=== PATIENT | female | born 1960 | race Caucasian/White ===

== ENCOUNTER → 2017-03-04 | Outpatient (REF) | payer OTHER | LOC: M LAB REF 16:49 | PROVIDERS: ATTEND Nurse Practitioner Women's Health | DX: N39.0 Urinary tract infection, site not specified (principal) ==

== ENCOUNTER → 2019-02-05 | Outpatient (REF) | payer OTHER | LOC: M LAB REF 12:08 | PROVIDERS: ATTEND Internal Medicine | DX: I26.09 Other pulmonary embolism with acute cor pulmonale (principal) ==

== ENCOUNTER → 2019-02-05 | Outpatient (CLI) | payer OTHER ==
[~2019-02-05] MED LIST: ISOVUE-370 76% 100ML VIAL (Q9967) As Ordered ONE
--- NOTE | 2019-02-05 14:11 | REP ---
CT ANGIOGRAM CHEST: TECHNIQUE: Axial contrast enhanced images from the thoracic inlet to the upper abdomen using 100 mL Isovue 370 intravenous contrast material with multiplanar reformations. There is no CT evidence of pulmonary embolism. There is no thoracic aortic aneurysm or dissection. There is mild cardiomegaly. There is no evidence of mediastinal, hilar, or chest wall lymphadenopathy. There is a small hiatal hernia. There is no pleural or pericardial effusion. There is a calcified granuloma in the right lower lobe, without evidence of infiltrate in either lung. There are degenerative changes of the spine. In the visualized portions of the upper abdomen there is evidence of cirrhosis of the liver with splenomegaly. A few gallstones are seen in the gallbladder without evidence of gallbladder wall edema or biliary dilatation. The portal vein is dilated and there is recannulization of the umbilical vein. Prominent splenic vein is noted. Findings are consistent with portal hypertension. IMPRESSION: No CT evidence of pulmonary embolism or aortic dissection. Mild cardiomegaly. Small hiatal hernia. Findings compatible with cirrhosis of the liver with splenomegaly and portal hypertension. There are gallstones in the gallbladder. Electronically Signed by Kishore Short MD 02/08/2019 01:04 P
== END ==
LOC: M RAD 12:03
PROVIDERS: ATTEND Internal Medicine
DX: R06.02 Shortness of breath (principal); K80.20 Calculus of gallbladder without cholecystitis without obstruction; R07.9 Chest pain, unspecified
CPT/HCPCS: 71275; Q9967

== ENCOUNTER → 2019-02-10 | Outpatient (REF) | payer OTHER ==
[2019-02-10 15:34] LABS: C REACTIVE PROTEIN QUANTITATIV 0.65 MG/DL (0.00-0.30); FERRITIN 61 NG/ML (8-252); IRON (FE) 111 UG/DL (50-170); PERCENT SATURATION 30.2 % (13.2-45.0); TOTAL IRON BINDING CAPACITY 368 UG/DL (250-450); TOTAL PROTEIN 7.4 GM/DL (6.4-8.2)
[2019-02-10 15:35] LABS: INR 1.28; PROTHROMBIN TIME 15.7 SECONDS (11.8-14.0)
[2019-02-10 15:38] LABS: D-DIMER QUANT 1033.05 ng/ml (<500)
[2019-02-10 15:54] LABS: HEPATITIS B SURFACE ANTIGEN NEGATIVE (NEGATIVE)
[2019-02-10 16:21] LABS: HEPATITIS C VIRUS ABY INDEX 0.1 INDEX (<0.8)
[2019-02-10 16:24] LABS: HEPATITIS A ANTIBODY IGM NEGATIVE (NEGATIVE)
[2019-02-11 12:24] LABS: ALBUMIN 3.67 GM/DL (3.29-5.55); ALBUMIN % 49.6 % (55.8-66.1); ALPHA-1-GLOBULIN % 3.8 % (2.9-4.9); ALPHA-1-GLOBULINS 0.28 GM/DL (0.17-0.41); ALPHA-2-GLOBULINS 0.55 GM/DL (0.42-0.99); ALPHA-2-GLOBULINS % 7.4 % (7.1-11.8); BETA-1-GLOBULINS 0.56 GM/DL (0.28-0.60); BETA-1-GLOBULINS % 7.6 % (4.7-7.2); BETA-2-GLOBULINS 0.59 GM/DL (0.19-0.55); GAMMA GLOBULIN % 23.6 % (11.1-18.8); GAMMA GLOBULINS 1.75 GM/DL (0.65-1.58)
[2019-02-12 00:07] LABS: ALPHA 1 ANTITRYPSIN 147 mg/dL (90-200); ANTI-MITOCHONDRIAL ANTIBODY <20.0 Units (0.0-20.0); ANTI-SMOOTH MUSCLE ANTIBODY 21 Units (0-19); ANTINUCLEAR ANTIBODIES DIRECT Negative (Negative); CERULOPLASMIN 23.5 mg/dL (19.0-39.0)
[2019-02-12 10:21] LABS: HEPATITIS B CORE ANTIBODY IGM NEGATIVE (NEGATIVE)
== END ==
LOC: M LAB REF 13:35
PROVIDERS: ATTEND Family Medicine
DX: K74.60 Unspecified cirrhosis of liver (principal)

== ENCOUNTER → 2019-06-22 | Outpatient (REF) | payer OTHER | LOC: M LAB REF 17:19 | PROVIDERS: ATTEND Family Medicine | DX: K74.60 Unspecified cirrhosis of liver (principal); R10.11 Right upper quadrant pain ==

== ENCOUNTER → 2019-09-20 | Outpatient (REF) | payer OTHER ==
[2019-09-20 21:02] LABS: INFLUENZA A AMPLIFICATION NEGATIVE (NEGATIVE); INFLUENZA B AMPLIFICATION NEGATIVE (NEGATIVE)
== END ==
LOC: M LAB REF 19:21
PROVIDERS: ATTEND Physician Assistant Medical
DX: J11.1 Influenza due to unidentified influenza virus with other respiratory manifestations (principal)

== ENCOUNTER 2020-02-07 17:44 | Emergency (ER) | payer OTHER ==
[~2020-02-07] VITALS: Ht 157.5 cm; Wt 84.1 kg
[2020-02-07] MEDS ORDERED: NADO40TA PO (18:08)
[2020-02-07] MEDS ORDERED: FAMO1TAB11 PO (18:08)
[2020-02-07] MEDS ORDERED: JANU50TA25 PO (18:08)
[2020-02-07] MEDS ORDERED: TRUL10IN SQ (18:08)
[2020-02-07] MEDS ORDERED: MORPHINE 4 MG/ML 1ML VIAL/SYRINGE (J2270) IV ONE (19:15)
[2020-02-07] MEDS ORDERED: BOOSTRIX/ADACEL VACCINE (DIPHTH/PERTUSS/ACELL/TETANUS) 0.5ML SYR IM ONE (19:30)
[2020-02-07] MEDS ORDERED: BACITRACIN OINTMENT 30GM TUBE TOP ONE (19:30)
[2020-02-07] MEDS ORDERED: traMADol 50 MG TAB PO ONE (19:30)
[2020-02-07] MEDS ORDERED: fentaNYL 100 MCG/2 ML INJECTION (J3010) IV ONE (19:45)
--- NOTE | 2020-02-07 20:56 | REPVR ---
PROCEDURE INFORMATION: Exam: CT Left Upper Extremity Without Contrast, Shoulder Exam date and time: 02/07/2020 8:42 PM Age: 59 years old Clinical indication: Injury or trauma; Fall; Initial encounter; Fracture, traumatic injury; Nondisplaced; Humerus; Left; Additional info: Trauma R/O glenoid FX TECHNIQUE: Imaging protocol: CT of the Left upper extremity without contrast was performed. Exam focused on the shoulder. Radiation optimization: All CT scans at this facility use at least one of these dose optimization techniques: automated exposure control; mA and/or kV adjustment per patient size (includes targeted exams where dose is matched to clinical indication); or iterative reconstruction. COMPARISON: CR Shoulder, complete LEFT 02/07/2020 6:37 PM FINDINGS: Bones/joints: Comminuted proximal humerus a numeral neck fracture. Osteoporosis. No evidence of a glenohumeral subluxation or dislocation. Soft tissues: Inflammatory changes demonstrated in the soft tissues posterolateral to the fractures. IMPRESSION: 1. Comminuted proximal humerus a numeral neck fracture. 2. Inflammatory changes demonstrated in the soft tissues posterolateral to the fractures. Electronically signed by: Everette Couch On 02/07/2020 20:55:25 PM
[2020-02-07] MEDS ORDERED: NADOLOL 20MG TABLET PO ONE (21:30)
[2020-02-07 21:36] VITALS: BP 181/81
[2020-02-07 21:58] VITALS: BP 144/80
[2020-02-07] MEDS ORDERED: TRAM50TA2 PO (22:03)
--- NOTE | 2020-02-08 04:46 | REP ---
REASON: Pain after trauma. There is a comminuted proximal humeral fracture. The glenohumeral and acromioclavicular relationships are maintained. I cannot completely rule out the possibility of a concomitant scapular fracture. Consider further evaluation with CT. Electronically Signed by Mckinley Godfrey DO 02/08/2020 11:37 A
--- NOTE | 2020-02-08 04:47 | REP ---
REASON: Trauma. There is a proximal humeral fracture, which is comminuted. I cannot rule out the possibility of a concomitant fracture involving the base of the glenoid. Consider further evaluation with CT. Electronically Signed by Mckinley Godfrey DO 02/08/2020 11:37 A
== END 2020-02-07 22:36 | disposition home or self-care (01) ==
LOC: M ED 17:44
DX: S42.292A Other displaced fracture of upper end of left humerus, initial encounter for closed fracture (principal); W18.39XA Other fall on same level, initial encounter; S80.211A Abrasion, right knee, initial encounter; S80.212A Abrasion, left knee, initial encounter; Y92.513 Shop (commercial) as the place of occurrence of the external cause; Y93.89 Activity, other specified; Y99.8 Other external cause status; I10 Essential (primary) hypertension; E11.9 Type 2 diabetes mellitus without complications; K75.81 Nonalcoholic steatohepatitis (NASH); Z79.899 Other long term (current) drug therapy; Z88.8 Allergy status to other drugs, medicaments and biological substances; Z88.5 Allergy status to narcotic agent
CPT/HCPCS: 73030; 73060; 73200; 90471; 90715; 96374; 99285; J3010

== ENCOUNTER → 2020-03-21 | Outpatient (REF) | payer OTHER ==
[~2020-03-21] MED LIST changes: +FAMO1TAB11 PO; -ISOVUE-370 76% 100ML VIAL (Q9967) As Ordered ONE; +JANU50TA25 PO; +NADO40TA PO; +TRAM50TA2 PO; +TRUL10IN SQ
[2020-03-21 12:00] LABS: INR 1.05; PROTHROMBIN TIME 13.9 SECONDS (11.8-14.0)
== END ==
LOC: M LAB REF 07:58
PROVIDERS: ATTEND Family Medicine
DX: K74.60 Unspecified cirrhosis of liver (principal); R94.5 Abnormal results of liver function studies

== ENCOUNTER → 2020-03-29 | Outpatient (CLI) | payer OTHER ==
--- NOTE | 2020-03-29 11:21 | REPVR ---
PROCEDURE INFORMATION: Exam: US Duplex Left Upper Extremity Veins, Limited Exam date and time: 03/29/2020 10:33 AM Age: 59 years old Clinical indication: Pain; Arm, upper; Left; Additional info: R/O dvt TECHNIQUE: Imaging protocol: Real-time Duplex ultrasound of the Left Upper Extremity with 2-D dickinson scale, color Doppler flow and spectral waveform analysis with image documentation. Limited exam focused on the left upper extremity veins. COMPARISON: No relevant prior studies available. FINDINGS: Left deep veins: Unremarkable. Axillary and brachial veins are patent throughout without thrombus. Normal Doppler waveforms. Normal compressibility and/or augmentation response. Visualized internal jugular and subclavian veins are patent. Left superficial veins: Unremarkable. Visualized cephalic and basilic veins are patent without thrombus. Soft tissues: Unremarkable. IMPRESSION: No evidence of deep vein thrombosis. Electronically signed by: Shayan Gray On 03/29/2020 11:20:49 AM
== END ==
LOC: M RAD 09:58
PROVIDERS: ATTEND Physician Assistant
DX: M79.632 Pain in left forearm (principal)

== ENCOUNTER → 2020-09-26 | Outpatient (REF) | payer OTHER ==
[2020-09-26 18:02] LABS: FOLATE > 24.0 NG/ML; VITAMIN B12 LEVEL 967 PG/ML
== END ==
LOC: M LAB REF 16:19
PROVIDERS: ATTEND Family Medicine
DX: D75.89 Other specified diseases of blood and blood-forming organs (principal)

== ENCOUNTER → 2020-09-27 | Outpatient (CLI) | payer OTHER ==
--- NOTE | 2020-09-27 08:55 | REP ---
INDICATION: CIRRHOSIS COMPARISON: None. TECHNIQUE: Real time dickinson scale ultrasound examination using curved array transducer. FINDINGS: Liver demonstrates coarsened echotexture with lobulated contour and recanalized umbilical vein consistent with the given history of cirrhosis. No focal hepatic lesion identified. Pancreas is normal in appearance. The gallbladder demonstrates mobile gallstone without wall thickening or pericholecystic fluid. No biliary ductal dilatation is appreciated and the common bile duct measures 2.9 mm diameter. Right kidney is normal in reniform shape without hydronephrosis and measures 11.1 x 4.9 x 4.8 cm including 1.6 x 1.4 x 1.6 cm midpole cyst. No ascites in the visualized right upper quadrant. IMPRESSION: 1. Findings consistent with cirrhosis and portal hypertension including recanalized umbilical vein. 2. Cholelithiasis. 3. Right renal cyst. <Electronically signed by Van Truong > 09/27/20 [id number]
== END ==
LOC: M RAD 07:23
PROVIDERS: ATTEND Internal Medicine Gastroenterology
DX: N28.1 Cyst of kidney, acquired (principal); K80.20 Calculus of gallbladder without cholecystitis without obstruction; K75.81 Nonalcoholic steatohepatitis (NASH); K74.60 Unspecified cirrhosis of liver; I85.00 Esophageal varices without bleeding; I86.4 Gastric varices; K21.9 Gastro-esophageal reflux disease without esophagitis

== ENCOUNTER → 2021-06-18 | Outpatient (CLI) | payer OTHER ==
--- NOTE | 2021-06-18 08:43 | REP ---
INDICATION: UNSPECIFIED CIRRHOSIS OF LIVER COMPARISON: 09/27/2020 TECHNIQUE: Real time dickinson scale ultrasound examination using curved array transducer. FINDINGS: Liver again demonstrates coarsened echotexture and recanalized umbilical vein consistent with given history of cirrhosis. Pancreas is incompletely evaluated due to interposed bowel gas. The gallbladder demonstrates gallstones without wall thickening or pericholecystic fluid. No biliary ductal dilatation is appreciated and the common bile duct measures 2.9 mm diameter. Right kidney is normal in reniform shape without hydronephrosis and measures 10.7 x 6.1 x 6.3 cm. Previously noted cyst is not identified on current examination. No ascites in the visualized right upper quadrant. IMPRESSION: Cirrhosis. Cholelithiasis. <Electronically signed by Van Truong > 06/18/21 0827
== END ==
LOC: M RAD 07:27
PROVIDERS: ATTEND Student in an Organized Health Care Education/Training Program
DX: K74.60 Unspecified cirrhosis of liver (principal); K80.20 Calculus of gallbladder without cholecystitis without obstruction; K21.9 Gastro-esophageal reflux disease without esophagitis

== ENCOUNTER → 2021-08-02 | Outpatient (REF) | payer OTHER ==
[2021-08-02 11:56] LABS: INR 1.12; PROTHROMBIN TIME 14.9 SECONDS (12.7-14.5)
== END ==
LOC: M LAB REF 11:42
PROVIDERS: ATTEND Family Medicine
DX: D69.6 Thrombocytopenia, unspecified (principal); K74.60 Unspecified cirrhosis of liver; Z12.11 Encounter for screening for malignant neoplasm of colon

== ENCOUNTER → 2021-10-29 | Outpatient (REF) | payer OTHER ==
[2021-10-29 12:56] LABS: INR 1.13; PROTHROMBIN TIME 14.9 SECONDS (12.7-14.5)
== END ==
LOC: M LAB REF 12:12
PROVIDERS: ATTEND Family Medicine
DX: K74.60 Unspecified cirrhosis of liver (principal); K21.9 Gastro-esophageal reflux disease without esophagitis; Z12.11 Encounter for screening for malignant neoplasm of colon

== ENCOUNTER → 2021-10-29 | Outpatient (REF) | payer OTHER | LOC: M LAB REF 16:36 | PROVIDERS: ATTEND Family Medicine | DX: D72.819 Decreased white blood cell count, unspecified (principal); D69.6 Thrombocytopenia, unspecified; D75.89 Other specified diseases of blood and blood-forming organs ==

== ENCOUNTER → 2021-11-21 | Outpatient (REF) | payer OTHER | LOC: M LAB REF 16:19 | PROVIDERS: ATTEND Family Medicine | DX: R79.89 Other specified abnormal findings of blood chemistry (principal) ==

== ENCOUNTER → 2021-12-10 | Outpatient (CLI) | payer OTHER | LOC: M WHC 08:43 | PROVIDERS: ATTEND Student in an Organized Health Care Education/Training Program | DX: K74.60 Unspecified cirrhosis of liver (principal); K21.9 Gastro-esophageal reflux disease without esophagitis; K80.80 Other cholelithiasis without obstruction ==

== ENCOUNTER → 2022-02-04 | Outpatient (REF) | payer OTHER | LOC: M LAB REF 11:30 | PROVIDERS: ATTEND Family Medicine | DX: K74.60 Unspecified cirrhosis of liver (principal) ==

== ENCOUNTER → 2022-05-28 | Outpatient (REF) | payer OTHER ==
[2022-05-28 11:39] LABS: INR 1.1; PROTHROMBIN TIME 14.4 SECONDS (12.5-14.5)
== END ==
LOC: M LAB REF 11:13
PROVIDERS: ATTEND Family Medicine
DX: K21.9 Gastro-esophageal reflux disease without esophagitis (principal); K74.60 Unspecified cirrhosis of liver

== ENCOUNTER → 2022-06-13 | Outpatient (CLI) | payer OTHER | LOC: M RAD 07:35 | PROVIDERS: ATTEND Internal Medicine Gastroenterology | DX: K74.60 Unspecified cirrhosis of liver (principal); I85.00 Esophageal varices without bleeding ==

== ENCOUNTER → 2022-11-04 | Outpatient (REF) | payer OTHER | LOC: M LAB REF 12:28 | PROVIDERS: ATTEND Family Medicine | DX: K74.60 Unspecified cirrhosis of liver (principal) ==

== ENCOUNTER → 2023-01-03 | Outpatient (CLI) | payer OTHER | LOC: M RAD 08:01 | PROVIDERS: ATTEND Nurse Practitioner Family | DX: K74.60 Unspecified cirrhosis of liver (principal); I85.00 Esophageal varices without bleeding; K21.9 Gastro-esophageal reflux disease without esophagitis; Z86.010 Personal history of colon polyps ==

== ENCOUNTER → 2023-04-07 | Outpatient (REF) | payer OTHER | LOC: M LAB REF 11:41 | PROVIDERS: ATTEND Family Medicine | DX: K74.60 Unspecified cirrhosis of liver (principal) ==

== ENCOUNTER → 2023-06-18 | Outpatient (CLI) | payer OTHER ==
[~2023-06-18] MED LIST changes: -NADO40TA PO; +NADO40TA6 PO
[2023-06-18 12:25] LABS: HEMATOCRIT 38.8 % (36.0-47.0); HEMOGLOBIN 13.1 g/dl (12.0-15.5); MEAN CORPUSCULAR HEMOGLOBIN 35.2 pg (27.0-33.0); MEAN CORPUSCULAR HGB CONC 33.8 g/dl (32.0-36.5); MEAN CORPUSCULAR VOLUME 104.3 fl (80.0-96.0); RED BLOOD COUNT 3.72 10^6/uL (4.00-5.40); WHITE BLOOD COUNT 3.2 10^3/uL (4.0-10.0)
[2023-06-18 12:35] LABS: INR 1.3; PROTHROMBIN TIME 15.8 SECONDS (12.5-14.5)
[2023-06-18 12:42] LABS: PLATELET COUNT, AUTOMATED 71 10^3/uL (150-450)
[2023-06-18 12:52] LABS: ALBUMIN 3.1 G/DL (3.2-5.2); ALKALINE PHOSPHATASE 107 U/L (46-116); ALT/SGPT 31 U/L (7.0-40); AST/SGOT 58 U/L (<34); BILIRUBIN,TOTAL 2.7 MG/DL (0.3-1.2); BLOOD UREA NITROGEN 8 MG/DL (9-23); CALCIUM LEVEL 8.5 MG/DL (8.3-10.6); CARBON DIOXIDE LEVEL 24 MMOL/L (20-31); CHLORIDE LEVEL 110 MMOL/L (98-107); CREATININE FOR GFR 0.39 MG/DL (0.55-1.30); GLOMERULAR FILTRATION RATE > 60.0 (>45); GLUCOSE, FASTING 148 MG/DL (74-106); POTASSIUM SERUM 3.7 MMOL/L (3.5-5.1); SODIUM LEVEL 141 MMOL/L (136-145); TOTAL PROTEIN 6.5 G/DL (5.7-8.2)
== END ==
LOC: M LAB 11:50
PROVIDERS: ATTEND Nurse Practitioner Family
DX: K74.60 Unspecified cirrhosis of liver (principal); I85.00 Esophageal varices without bleeding; K21.9 Gastro-esophageal reflux disease without esophagitis

== ENCOUNTER → 2023-08-13 | Outpatient (CLI) | payer OTHER ==
[2023-08-13 13:33] LABS: HEMATOCRIT 42.4 % (36.0-47.0); HEMOGLOBIN 14.2 g/dl (12.0-15.5); MEAN CORPUSCULAR HGB CONC 33.5 g/dl (32.0-36.5); MEAN CORPUSCULAR VOLUME 104.4 fl (80.0-96.0); RED BLOOD COUNT 4.06 10^6/uL (4.00-5.40); WHITE BLOOD COUNT 4.4 10^3/uL (4.0-10.0)
[2023-08-13 13:34] LABS: PLATELET COUNT, AUTOMATED 89 10^3/uL (150-450)
[2023-08-13 13:46] LABS: INR 1.24; PROTHROMBIN TIME 15.2 SECONDS (12.5-14.5)
== END ==
LOC: M LAB 13:01
PROVIDERS: ATTEND Dentist
DX: K75.81 Nonalcoholic steatohepatitis (NASH) (principal)

== ENCOUNTER → 2023-10-30 | Outpatient (REF) | payer OTHER ==
[2023-10-30 12:32] LABS: INR 1.34; PROTHROMBIN TIME 16.2 SECONDS (12.5-14.5)
== END ==
LOC: M LAB REF 11:43
PROVIDERS: ATTEND Family Medicine
DX: K74.60 Unspecified cirrhosis of liver (principal)

== ENCOUNTER → 2024-01-14 | Outpatient (REF) | payer OTHER ==
[2024-01-14 17:24] LABS: INR 1.4; PROTHROMBIN TIME 16.7 SECONDS (12.5-14.5)
== END ==
LOC: M LAB REF 16:06
PROVIDERS: ATTEND Family Medicine
DX: R79.89 Other specified abnormal findings of blood chemistry (principal); K44.9 Diaphragmatic hernia without obstruction or gangrene; K75.81 Nonalcoholic steatohepatitis (NASH)

== ENCOUNTER 2024-01-21 16:50 | Emergency (ER) | payer OTHER ==
[~2024-01-21] VITALS: Ht 157.5 cm; Wt 87.4 kg
[2024-01-21] MEDS ORDERED: XIFA550T PO (17:11)
[2024-01-21] MEDS ORDERED: ELIQ5TAB PO (17:11)
[2024-01-21 17:54] LABS: BASO % 0.7 % (0.0-1.0); EOS # 0.3 10^3/uL (0.0-0.5); EOS % 8.6 % (0.0-3.0); HEMATOCRIT 37.1 % (36.0-47.0); HEMOGLOBIN 12.4 g/dl (12.0-15.5); LYMPH # 0.8 10^3/uL (1.5-5.0); LYMPH % 27.8 % (24.0-44.0); MEAN CORPUSCULAR HEMOGLOBIN 35.6 pg (27.0-33.0); MEAN CORPUSCULAR HGB CONC 33.4 g/dl (32.0-36.5); MEAN CORPUSCULAR VOLUME 106.6 fl (80.0-96.0); MONO # 0.3 10^3/uL (0.0-0.8); MONO % 10.7 % (2.0-8.0); NEUTROPHILS # 1.5 10^3/uL (1.5-8.5); NEUTROPHILS % 51.9 % (36.0-66.0); RED BLOOD COUNT 3.48 10^6/uL (4.00-5.40); WHITE BLOOD COUNT 2.9 10^3/uL (4.0-10.0)
[2024-01-21 18:09] LABS: PLATELET COUNT, AUTOMATED 71 10^3/uL (150-450)
[2024-01-21] MEDS: METOPROLOL 5 MG/5 ML VIAL IV SCH (18:19)
[2024-01-21] MEDS: NS 1,000 ML IV ONE (18:19)
[2024-01-21 18:23] LABS: LIPASE 38 U/L (12-53)
[2024-01-21 18:26] LABS: ALKALINE PHOSPHATASE 108 U/L (46-116); ALT/SGPT 30 U/L (7.0-40); AST/SGOT 61 U/L (<34); BILIRUBIN,DIRECT 1.2 MG/DL (<0.4); BILIRUBIN,TOTAL 3.3 MG/DL (0.3-1.2); BLOOD UREA NITROGEN 11 MG/DL (9-23); CALCIUM LEVEL 8.7 MG/DL (8.3-10.6); CARBON DIOXIDE LEVEL 21 MMOL/L (20-31); CHLORIDE LEVEL 110 MMOL/L (98-107); CK-MB VALUE MASS < 1.0 NG/ML (<3.6); GLOMERULAR FILTRATION RATE > 60.0 (>45); GLUCOSE, FASTING 216 MG/DL (74-106); MAGNESIUM LEVEL 1.5 MG/DL (1.8-2.4); POTASSIUM SERUM 3.7 MMOL/L (3.5-5.1); SODIUM LEVEL 142 MMOL/L (136-145); TOTAL PROTEIN 6.4 G/DL (5.7-8.2)
[2024-01-21 18:27] LABS: THYROID STIMULATING HORMONE 4.014 uIU/ML (0.55-4.78)
[2024-01-21 18:28] LABS: FREE T4 0.81 NG/DL (0.89-1.76)
[2024-01-21 18:29] LABS: CPK CREATINE PHOSPHOKINASE 53 U/L (34-145); MB/CK RELATIVE INDEX 1.88 (< OR =4)
[2024-01-21 18:34] VITALS: BP 162/87
[2024-01-21] MEDS: NADOLOL 20MG TABLET PO STA (18:34)
[2024-01-21] MEDS: MAG SULF 1GM/100ML (MAG RUN) 1 GM in IV 1 EA IV ONE (19:02)
[2024-01-21 20:30] VITALS: BP 166/84; TEMP 97.1; O2SAT 98
== END 2024-01-21 20:42 | disposition home or self-care (01) ==
LOC: M ED 16:50
DX: I48.91 Unspecified atrial fibrillation (principal); E83.42 Hypomagnesemia; E11.9 Type 2 diabetes mellitus without complications; I10 Essential (primary) hypertension; K75.81 Nonalcoholic steatohepatitis (NASH); Z79.01 Long term (current) use of anticoagulants; Z79.4 Long term (current) use of insulin; Z79.899 Other long term (current) drug therapy; Z88.5 Allergy status to narcotic agent; Z88.8 Allergy status to other drugs, medicaments and biological substances
CPT/HCPCS: 71045; 80048; 80076; 82550; 82553; 83690; 83735; 83880; 84439; 84443; 84484; 85025; 85049; 85055; 93005; 93041; 94760; 96361; 96365; 96374; 99285; J3475

== ENCOUNTER → 2024-02-17 | Outpatient (CLI) | payer OTHER ==
[~2024-02-17] MED LIST changes: +ELIQ5TAB PO; +XIFA550T PO
[2024-02-17 12:39] LABS: BLOOD UREA NITROGEN 8 MG/DL (9-23); CREATININE FOR GFR 0.46 MG/DL (0.55-1.30); GLOMERULAR FILTRATION RATE > 60.0 (>45)
== END ==
LOC: M LAB 10:33
PROVIDERS: ATTEND Internal Medicine Gastroenterology
DX: K75.81 Nonalcoholic steatohepatitis (NASH) (principal); R94.5 Abnormal results of liver function studies

== ENCOUNTER → 2024-02-23 | Outpatient (CLI) | payer OTHER ==
[~2024-02-23] MED LIST changes: +GASTROGRAFIN SOLUTION 30ML As Ordered ONE; +ISOVUE-370 76% 100ML VIAL As Ordered ONE
== END ==
LOC: M RAD 10:47
PROVIDERS: ATTEND Internal Medicine Gastroenterology
DX: K75.81 Nonalcoholic steatohepatitis (NASH) (principal); K74.60 Unspecified cirrhosis of liver; K44.9 Diaphragmatic hernia without obstruction or gangrene; K21.9 Gastro-esophageal reflux disease without esophagitis; R79.89 Other specified abnormal findings of blood chemistry; R19.5 Other fecal abnormalities; R16.1 Splenomegaly, not elsewhere classified; K80.20 Calculus of gallbladder without cholecystitis without obstruction; K76.6 Portal hypertension; I85.10 Secondary esophageal varices without bleeding
CPT/HCPCS: 74177; Q9963; Q9967

== ENCOUNTER → 2024-04-15 | Outpatient (CLI) | payer OTHER ==
[~2024-04-15] MED LIST changes: -GASTROGRAFIN SOLUTION 30ML As Ordered ONE; -ISOVUE-370 76% 100ML VIAL As Ordered ONE
== END ==
LOC: M RAD 09:40
PROVIDERS: ATTEND Physician Assistant
DX: M79.605 Pain in left leg (principal)

== ENCOUNTER → 2024-05-10 | Outpatient (REF) | payer OTHER ==
[2024-05-10 12:59] LABS: FOLATE 14.4 NG/ML (>5.4)
== END ==
LOC: M LAB REF 12:04
PROVIDERS: ATTEND Family Medicine
DX: K74.60 Unspecified cirrhosis of liver (principal)

== ENCOUNTER → 2024-10-19 | Outpatient (REF) | payer OTHER ==
[~2024-10-19] MED LIST changes: +NADO40TA40 PO; -NADO40TA6 PO
[2024-10-19 12:35] LABS: INR 1.51; PROTHROMBIN TIME 18.4 SECONDS (12.5-14.5)
== END ==
LOC: M LAB REF 12:07
PROVIDERS: ATTEND Family Medicine
DX: K74.60 Unspecified cirrhosis of liver (principal); R94.5 Abnormal results of liver function studies; I85.00 Esophageal varices without bleeding

== ENCOUNTER → 2024-10-25 | Outpatient (CLI) | payer OTHER ==
[~2024-10-25] MED LIST changes: +ISOVUE-370 76% 100ML VIAL As Ordered ONE
== END ==
LOC: M RAD 12:29
PROVIDERS: ATTEND Internal Medicine Gastroenterology
DX: K74.60 Unspecified cirrhosis of liver (principal); R94.5 Abnormal results of liver function studies

== ENCOUNTER → 2025-03-04 | Outpatient (REF) | payer OTHER, MEDICARE ==
[~2025-03-04] MED LIST changes: -ISOVUE-370 76% 100ML VIAL As Ordered ONE
[2025-03-04 12:01] LABS: INR 1.5
== END ==
LOC: M LAB REF 11:37
PROVIDERS: ATTEND Family Medicine
DX: K75.81 Nonalcoholic steatohepatitis (NASH) (principal); K74.60 Unspecified cirrhosis of liver

== ENCOUNTER → 2025-03-29 | Outpatient (REF) | payer MEDICARE, OTHER | LOC: M LAB REF 15:07 | PROVIDERS: ATTEND Family Medicine | DX: K74.60 Unspecified cirrhosis of liver (principal) ==